=== PATIENT | female | born 1990 | race Two or more races ===

== ENCOUNTER 2024-08-04 11:47 | Emergency (ER) | payer OTHER ==
[~2024-08-04] VITALS: Ht 152.4 cm; Wt 78.5 kg
[2024-08-04 16:56] LABS: HEMATOCRIT 34.4 % (36.0-45.00); HEMOGLOBIN 11.4 g/dL (12.0-15.00); MEAN CELL VOLUME 84.8 fL (80.00-100.00); PLATELET COUNT 250 K/uL (150-450); RED BLOOD COUNT 4.06 M/uL (4.00-6.00); RED CELL DISTRIBUTION WIDTH 13.7 % (11.5-14.5)
[2024-08-04 16:58] LABS: PH,URINE 7.5 (5.0-8.0); URINE APPEARANCE Clear; URINE BILIRRUBIN Negative (NEGATIVE); URINE BLOOD Small; URINE COLOR Yellow; URINE GLUCOSE Negative (NEGATIVE); URINE KETONE Negative (NEGATIVE); URINE LEUKOCYTE Large; URINE NITRATE Negative; URINE PROTEIN Negative (NEGATIVE); URINE UROBILINOGEN 0.2 E.U./dl
[2024-08-04 17:02] LABS: URINE BACTERIA 615.6 uL (0.0-1933); URINE CAST 1.91 uL (0.0-1.40); URINE EPITHELIAL CELLS 18.8 uL (0.0-38.8); URINE RBC 2.6 uL (0.0-20.8); URINE WBC 245.5 uL (0.0-23.2)
[2024-08-04 17:27] LABS: CALCIUM 9.4 mg/dL (8.5-10.1); CREATININE SERUM 0.7 mg/dL (0.55-1.02); GFR 94.68; POTASSIUM 3.36 mEq/L (3.5-5.1)
[2024-08-04] MEDS ORDERED: KETOROLAC TROMETHAMINE 60 MG VIAL IM ONE (19:36)
== END 2024-08-04 18:36 | disposition home or self-care (01) ==
LOC: ER 11:49
PROVIDERS: General Practice
DX: N39.0 Urinary tract infection, site not specified (principal)